=== PATIENT | male | born 1985 | race Caucasian/White ===

== ENCOUNTER 2019-04-18 13:25 | Outpatient (CLI) | payer SELFPAY | END 2019-04-18 13:26 | disposition EMS.NT | LOC: EMS 13:25 | PROVIDERS: ATTEND Surgery | DX: R09.89 Other specified symptoms and signs involving the circulatory and respiratory systems (principal); F41.9 Anxiety disorder, unspecified ==

== ENCOUNTER 2019-07-29 13:41 | Outpatient (CLI) | payer OTHER ==
--- NOTE | 2019-07-29 14:41 | SLEEP CARE CONSULTATION ---
Information from patient questionnaire entered by Guadalupe Shen. I have reviewed and concur with the information entered by Guadalupe Shen. This document represents the service I personally performed and the decisions made by me, Levi Mena MD, [facility]. History of Present Illness Reason for Visit: New patient, Previously diagnosed sleep apnea (AHI 8.9), sleep apnea on CPAP therapy, Re-establish care, Other (update cpap supplies) Duration of Symptoms: 9 years Usual bedtime: 2200 Time it takes to fall asleep: 15 minutes Snores at night: No Observed to quit breathing while asleep: Yes Sleeps alone due to snoring: No Number of times waking at night: 3-4 Reasons for waking at night: reports: Gasping for air, Bathroom Toss, Turn, or Twitch while sleeping: No Recalls having dreams: Yes Usually gets out of bed at: 0630 Morning headache: No Sleepy or fatigued during the day: Yes Ever fallen asleep while driving: No Takes day naps: Yes Dreams during day naps: Yes Prior sleep studies: Yes Year and Where: 2011 [facility] Additional HPI information: HPI: I had the pleasure of seeing Mr. Singer today regarding mild obstructive sleep apnea-hypopnea. As you know, he is a 33 year old gentleman who was diagnosed with the sleep-disordered breathing here in 2011. The AHI was 8.9. He was prescribed a CPAP device set at 4 20 cmH2O. He used the device for a short while then returned it. He then relocated to [place] and was prescribed another CPAP. He uses the device every night and all night. The compliance data show usage in 172 out of the past 180 nights, averaging 7.4 hours a night. The residual AHI is 1.9 and average air leak is 0 L/minute. The ResMed [id number] is set at 11 16.4 cmH2O (he changes the pressure himself). The 90th percentile pressure is 11.2 cmH2O. He wears a Respironics DreamWear nasal cushion mask. He gets his supplies from [facility] but would like to switch durable medical supplier. He finds the treatment very helpful. 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 Patient is and lives in [place]. Have you smoked in the past 12 months: No Alcohol use: Yes Alcohol amount and frequency: 1 glass, 2 times/week Caffeine use: Yes Caffeine amount and frequency: 2 times/week Family History Family history of sleep disordered breathing: No Family Hx Sleep Apnea: Grandparent: Snoring (uncle), Other: Snoring Allergies and Home Medications Drug allergies reviewed: Yes (NKDA) Home medication list reviewed: Yes (losartan and metoprolol) Review of Systems Review of systems same as previous: Yes Cardiovascular: reports: high blood pressure Respiratory: denies: shortness of breath, wheeze, sputum production, chronic cough, other Gastrointestinal: denies: heartburn, difficulty swallowing, nausea, vomitting, diarrhea, abdominal pain, other Urinary: denies: incontinence, frequency, urgency, impotence, other Neurological: denies: headaches, seizure, head trauma, disorientation, speech dysfunction, gait or balance problems, fainting or unconsciousness, other Psychiatric: reports: anxiety Ear/Nose/Throat: reports: nasal congestion Endocrine: denies: thyroid disease, history of goiter, sluggishness, too hot or cold, excessive thirst, increased appetite, increased urination, unexplained weakness, other Musculoskeletal: denies: joint pain, neck pain, back pain, joint swelling, muscle pain or cramping, mobility problems, other Immunologic: denies: sneezing, rash, itching, allergies to food or environment, other Physical Exam Vital signs obtained and entered by: Dr. Brito Blood Pressure: 146/91 Cuff size: regular Heart Rate: 75 O2 Saturation: 98 Height: 6 ft Weight: 222 lb Body Mass Index: 30.1 BMI Classification: Obese Neck circumference: 17.5 Mood/affect: normal HEENT: No craniofacial malformation Nostrils: patent to airflow Turbinates: normal Septum: midline Mouth and throat: narrow oropharynx Soft palate: long Hard palate: normal Uvula: normal Uvula visualization: 50% Mallampati Class II Tongue: normal in size Tonsils: small Chin and jaw: normal size and position Neck: normal w/o lymphadenopathy or thyromegaly Heart: regular rate and rhythm Lungs: clear bilaterally Abdomen: soft, non-tender Extremities: no edema or clubbing Neurologic: intact, no focal deficits Impression and Plan IMPRESSION: 1. Obstructive Sleep Apnea-Hypopnea Syndrome, mild, as previously diagnosed. He has good CPAP compliance. The current pressure setting appears effective and comfortable. His mask fits well. He will have to switch durable medical supplier because he now has [employer] as his insurance. I will order him new supplies through [employer]. Plan: 1. Prescription made for CPAP supplies and faxed to [employer]. 2. Try ResMed N30i mask. 3. Attempt to lose weight. 4. Return for follow up in a year or earlier if there is any problem. I spent 100% of this visit face to face with the patient with greater than 50% of this was spent time counseling the patient and coordination of care.
[2019-07-30 16:38] VITALS: BP 146/91
== END 2019-07-29 13:42 | disposition home or self-care (01) ==
LOC: SC 13:41
PROVIDERS: ATTEND Internal Medicine Pulmonary Disease
DX: G47.33 Obstructive sleep apnea (adult) (pediatric) (principal); E66.01 Morbid (severe) obesity due to excess calories; Z68.43 Body mass index [BMI] 50.0-59.9, adult
CPT/HCPCS: 99203; 99212

== ENCOUNTER 2020-12-20 09:13 | Outpatient (CLI) | payer OTHER ==
--- NOTE | 2020-12-20 11:29 | XRAY Report ---
PROCEDURE: Lumbar Spine 2 View INDICATIONS: SPONDYLOLISTHESIS TECHNIQUE: 3 views of the lumbar spine were acquired. COMPARISON: None. FINDINGS: Bones: Transitional anatomy with 6 [id number] vertebrae and nonrudimentary S1-S2 disc. There is normal bony alignment. No vertebral body compression fractures. No suspicious bony lesions. Soft tissues: Overlying bowel gas pattern is normal. No suspicious soft tissue calcifications. IMPRESSION: 1. Transitional anatomy. 2. No osseous lesion. If there is continued clinical concern for pathology, then MRI should be consid ered for further evaluation. Reviewed by: Mily Robles MD, PhD on 12/20/2020 11:27 AM PDT Approved by: Mily Robles MD, PhD on 12/20/2020 11:27 AM PDT Station ID: [id number]
== END 2020-12-20 09:14 | disposition home or self-care (01) ==
LOC: DI.N 09:13
PROVIDERS: ATTEND Physician Assistant
DX: M54.5 Low back pain (principal)